=== PATIENT | female | born 2000 | race Caucasian/White ===

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

== ENCOUNTER 2019-02-01 16:32 | Emergency (ER) | payer SELFPAY ==
[~2019-02-01] VITALS: Ht 165.1 cm; Wt 52.2 kg
[2019-02-01] MEDS ORDERED: NS IV 1000 ML 1,000 ML IV ONE (16:48)
[2019-02-01] MEDS ORDERED: fentaNYL INJECTION 100 MCG/2 ML AMP IVP STA (16:48)
[2019-02-01] MEDS ORDERED: ONDANSETRON 4 MG/2 ML (SDV) Z0FRAN IVP ONE (17:00)
[2019-02-01] MEDS ORDERED: FAMOTIDINE 20MG/2ML IV (PEPCID) IV STA (17:06)
--- NOTE | 2019-02-01 17:06 | ED Abdominal Pain ---
General Chief Complaint: Abdominal/GI Problems Stated Complaint: ABD PAIN Nursing Triage Note: PT STATES HAVING RIGHT SIDED ABD PAIN FOR 4 DAYS. PT DENIES INJURY TO SIDE. PT DENIES N/V/D/FEVER. PT DENIES BURNING OR PAIN WITH URINATION. PT DENIES VAGINAL DISCHARGE. PT STATES SHE SAW PCP YESTERDAY AND WAS TOLD IT WAS MUSCLE PAIN. PT STATES TAKING DEEP BREATHS AND LAYING DOWN OR GETTING UP WORSENS PAIN. Source of Information: Patient Exam Limitations: No Limitations History of Present Illness Date Seen by Provider: Feb 01, 2019 Time Seen by Provider: 16:47 Initial Comments Here with right-sided upper abdominal pain for the last 3-4 days. States it hurts worse when she is moving or breathing. Denies pain with eating and states feels different when she is drinking fluids. Denies nausea or vomiting. Denies fever or chills. Timing/Duration: 3-4 Days Severity/Quality: Moderate, Aching, Sharp Location: RUQ Radiation: No Radiation Activities at Onset: None Modifying Factors: Worsens With Movement Associated Symptoms: No Back Pain, No Chest Pain, No Fever/Chills, No Nausea/Vomiting, No Shortness of Air, No Weakness Allergies and Home Medications Allergies Coded Allergies: No Known Drug Allergies (Unverified Allergy, Mild, 11/01/09) Patient Home Medication List Home Medication List Reviewed: Yes Review of Systems Review of Systems Constitutional: see HPI; No chills, No fever EENTM: No Symptoms Reported Respiratory: No Symptoms Reported Cardiovascular: No Symptoms Reported Gastrointestinal: See HPI, Abdominal Pain; Denies Diarrhea, Denies Nausea Genitourinary: No Symptoms Reported Musculoskeletal: no symptoms reported Skin: no symptoms reported Psychiatric/Neurological: No Symptoms Reported All Other Systems Reviewed Negative Unless Noted: Yes Past Xfbqgaw-Sxvnsu-[place] Hx Past Med/Social Hx: Reviewed Nursing Past Med/Soc Hx Patient Social History Alcohol Use: Denies Use Recreational Drug Use: Yes (THC) Smoking Status: Never a Smoker Recent Foreign Travel: No Contact w/Someone Who Travel: No Recent Hopitalizations: No Seasonal Allergies Seasonal Allergies: No Past Medical History Surgeries: Yes (rhinoplasty) Respiratory: No Cardiac: No Neurological: No Genitourinary: No Gastrointestinal: No Musculoskeletal: No Endocrine: No HEENT: No Cancer: No Psychosocial: No Blood Disorders: No Family Medical History Reviewed Nursing Family Hx Physical Exam Vital Signs Vital Signs - First Documented 02/01/19 16:39 Temp 97.6 Pulse 99 Resp 18 B/P (MAP) 132/88 Pulse Ox 99 O2 Delivery Room Air Capillary Refill : Height/Weight/BMI Height: 5'5.00" Weight: 115lbs. oz. [id number]; 14.06 BMI Method:Stated General Appearance: WD/WN, mild distress HEENT: PERRL/EOMI, pharynx normal Neck: full range of motion, supple Respiratory: lungs clear, normal breath sounds Cardiovascular: no murmur, tachycardia Gastrointestinal: non tender, soft Extremities: non-tender, normal inspection Back: normal inspection, no CVA tenderness, no vertebral tenderness Neurologic/Psychiatric: alert, oriented x 3 Skin: normal color, warm/dry Progress/Results/Core Measures Results/Orders Lab Results Laboratory Tests Test 02/01/19 17:03 Range/Units White Blood Count 8.7 4.3-11.0 10^3/uL Red Blood Count 4.62 4.35-5.85 10^6/uL Hemoglobin 13.2 11.5-16.0 G/DL Hematocrit 41 35-52 % Mean Corpuscular Volume 89 80-99 FL Mean Corpuscular Hemoglobin 29 25-34 PG Mean Corpuscular Hemoglobin Concent 32 32-36 G/DL Red Cell Distribution Width 13.0 10.0-14.5 % Platelet Count 352 130-400 10^3/uL Mean Platelet Volume 9.6 7.4-10.4 FL Neutrophils (%) (Auto) 62 42-75 % Lymphocytes (%) (Auto) 26 12-44 % Monocytes (%) (Auto) 11 0-12 % Eosinophils (%) (Auto) 2 0-10 % Basophils (%) (Auto) 0 0-10 % Neutrophils # (Auto) 5.4 1.8-7.8 X 10^3 Lymphocytes # (Auto) 2.3 1.0-4.0 X 10^3 Monocytes # (Auto) 0.9 0.0-1.0 X 10^3 Eosinophils # (Auto) 0.2 0.0-0.3 10^3/uL Basophils # (Auto) 0.0 0.0-0.1 10^3/uL Sodium Level 139 135-145 MMOL/L Potassium Level 3.9 3.6-5.0 MMOL/L Chloride Level 102 98-107 MMOL/L Carbon Dioxide Level 25 21-32 MMOL/L Anion Gap 12 5-14 MMOL/L Blood Urea Nitrogen 10 7-18 MG/DL Creatinine 0.84 0.60-1.30 MG/DL Estimat Glomerular Filtration Rate > 60 BUN/Creatinine Ratio 12 Glucose Level 84 70-105 MG/DL Calcium Level 10.1 8.5-10.1 MG/DL Corrected Calcium 9.7 8.5-10.1 MG/DL Total Bilirubin 0.3 0.1-1.0 MG/DL Aspartate Amino Transf (AST/SGOT) 11 5-34 U/L Alanine Aminotransferase (ALT/SGPT) 11 0-55 U/L Alkaline Phosphatase 48 40-136 U/L C-Reactive Protein High Sensitivity 3.02 H 0.00-0.50 MG/DL Total Protein 8.3 H 6.4-8.2 GM/DL Albumin 4.5 3.2-4.5 GM/DL Lipase 34 8-78 U/L Serum Test, Qualitative NEGATIVE NEGATIVE My Orders Orders - ISIDRO BOSWELL MD Us Gallbladder [id number] (02/01/19 16:48) Cbc With Automated Diff (02/01/19 16:48) Comprehensive Metabolic Panel (02/01/19 16:48) Hs C Reactive Protein (02/01/19 16:48) Hcg,Qualitative Serum (02/01/19 16:48) Lipase (02/01/19 16:48) Ed Iv/Invasive Line Start (02/01/19 16:48) Ns Iv 1000 Ml (Sodium Chloride 0.9%) (02/01/19 16:48) Fentanyl Injection (Sublimaze Injection (02/01/19 16:48) Ondansetron Injection (Zofran Injectio (02/01/19 17:00) Famotidine Injection (Pepcid Injection) (02/01/19 17:06) Chest Pa/Lat (2 View) (02/01/19 17:19) Medications Given in ED Current Medications Medications Dose Ordered Sig/Maikel Route Start Time Stop Time Status Last Admin Dose Admin Ondansetron HCl 4 mg ONCE ONCE IVP 02/01/19 17:00 02/01/19 17:01 DC 02/01/19 17:17 4 MG Sodium Chloride 1,000 ml @ 0 mls/hr Q0M ONCE IV 02/01/19 16:48 02/01/19 16:49 DC 02/01/19 17:17 1,000 MLS/HR Vital Signs/I&O 02/01/19 16:39 Temp 97.6 Pulse 99 Resp 18 B/P (MAP) 132/88 Pulse Ox 99 O2 Delivery Room Air Progress Progress Note : Progress Note Seen and evaluated. IV, labs, ultrasound gallbladder, chest x-ray, normal saline 1 L bolus, Zofran 4 mg IV, fentanyl 50 g IV ordered. Monitor patient. 1740: Ultrasound negative. Pain resolved. Pending chest x-ray. 1751: Chest x-ray complete and shows no acute findings. Discharged home with return precautions. Patient verbalize understanding instructions and agreement with plan. Diagnostic Imaging Diagonstic Imaging: Ultrasound Plain Films/CT/US/NM/MRI: abdomen Comments NAME: REGINALD GARCIA [facility] REC#: [id number] PT STATUS: REG ER : 2000 PHYSICIAN: ISIDRO BOSWELL MD ADMIT DATE: 02/01/19/ER Draft Date of Exam:02/01/19 US GALLBLADDER [id number] PROCEDURE: US Gallbladder. TECHNIQUE: Multiple real-time grayscale images were obtained over the right upper quadrant in various projections. INDICATION: Abdominal pain. COMPARISON: None available. FINDINGS: Liver: Normal in size and echotexture. No focal lesion is seen. Gallbladder: Normal. No stones or gallbladder wall thickening. No pericholecystic fluid. Negative sonographic Marin's sign. Biliary Tree: No intrahepatic or extrahepatic bile duct dilation is identified. The proximal common duct measures 0.3 cm in diameter. Pancreas: The head is obscure by overlying bowel gas. No abnormality in the visualized portions of the distal body and tail. Right kidney: Normal parenchymal echotexture and thickness. No hydronephrosis, stone or mass. IMPRESSION: Right upper quadrant ultrasound is within normal limits. No sonographic evidence of an acute abdominal process. Dictated on workstation # [id number] Dict: 02/01/19 1721 Trans: 02/01/19 1724 [facility] [id number] Interpreted by: SILAS BOYD DO Electronically signed by: Diagonstic Imaging: Xray Plain Films/CT/US/NM/MRI: chest Comments No acute findings Reviewed: Reviewed by Me Departure Impression Primary Impression: Epigastric abdominal pain Disposition: 01 HOME, SELF-CARE Condition: Improved Departure-Patient Inst. Decision time for Depature: 17:49 Referrals: JAKE VELASQUEZ,LOCAL PHYSICIAN (PCP) Primary Care Physician [facility] Patient Instructions: Acid Reflux (Gastroesophageal Reflux Disease) in Adults, Acute Abdomen (Belly Pain), Adult (DC) Add. Discharge Instructions: All discharge instructions reviewed with patient and/or family. Voiced understanding. You may take omeprazole 20 mg daily for the next 2 weeks and may extend that up to 6 weeks as needed for stomach upset. You may also take Pepcid or the generic famotidine 20 mg daily for pain. You may take Tylenol/acetaminophen 1000 mg every 8 hours as needed for pain. Light diet for the next few days and then advance as tolerated. You should follow-up with a doctor of your choosing or listed for recheck and further evaluation within one week for recheck and fur ther evaluation as needed. Return for worse pain, fever, vomiting, weakness, breathing problems or other concerns as needed. Work/School Note: Work Release Form Date Seen in the Emergency Department: Feb 01, 2019 Return to Work: Feb 02, 2019 Restrictions: No Restrictions ISIDRO BOSWELL MD Feb 01, 2019 17:06
[2019-02-01 17:10] LABS: BASOPHILS % (AUTO) 0 % (0-10); EOSINOPHILS # (AUTO) 0.2 10^3/uL (0.0-0.3); EOSINOPHILS % (AUTO) 2 % (0-10); HEMATOCRIT 41 % (35-52); HEMOGLOBIN 13.2 G/DL (11.5-16.0); LYMPHOCYTES # (AUTO) 2.3 X 10^3 (1.0-4.0); LYMPHOCYTES % (AUTO) 26 % (12-44); MEAN CORPUSCULAR HEMOGLOBIN 29 PG (25-34); MEAN CORPUSCULAR HGB CONC 32 G/DL (32-36); MEAN CORPUSCULAR VOLUME 89 FL (80-99); MEAN PLATELET VOLUME 9.6 FL (7.4-10.4); MONOCYTES # (AUTO) 0.9 X 10^3 (0.0-1.0); MONOCYTES % (AUTO) 11 % (0-12); NEUTROPHILS # (AUTO) 5.4 X 10^3 (1.8-7.8); NEUTROPHILS % (AUTO) 62 % (42-75); PLATELET COUNT 352 10^3/uL (130-400); WHITE BLOOD COUNT 8.7 10^3/uL (4.3-11.0)
--- NOTE | 2019-02-01 17:24 | Diagnostic Imaging Report ---
PROCEDURE: US Gallbladder. TECHNIQUE: Multiple real-time grayscale images were obtained over the right upper quadrant in various projections. INDICATION: Abdominal pain. COMPARISON: None available. FINDINGS: Liver: Normal in size and echotexture. No focal lesion is seen. Gallbladder: Normal. No stones or gallbladder wall thickening. No pericholecystic fluid. Negative sonographic Marin's sign. Biliary Tree: No intrahepatic or extrahepatic bile duct dilation is identified. The proximal common duct measures 0.3 cm in diameter. Pancreas: The head is obscure by overlying bowel gas. No abnormality in the visualized portions of the distal body and tail. Right kidney: Normal parenchymal echotexture and thickness. No hydronephrosis, stone or mass. IMPRESSION: Right upper quadrant ultrasound is within normal limits. No sonographic evidence of an acute abdominal process. Dictated by: Dictated on workstation # [id number]
[2019-02-01 17:27] LABS: ALANINE AMINOTRANSFERASE 11 U/L (0-55); ALBUMIN 4.5 GM/DL (3.2-4.5); ALKALINE PHOSPHATASE 48 U/L (40-136); BILIRUBIN,TOTAL 0.3 MG/DL (0.1-1.0); BUN/CREATININE RATIO 12; CALCIUM 10.1 MG/DL (8.5-10.1); CARBON DIOXIDE 25 MMOL/L (21-32); CHLORIDE 102 MMOL/L (98-107); CREATININE SERUM 0.84 MG/DL (0.60-1.30); GFR ESTIMATED > 60; GLUCOSE 84 MG/DL (70-105); LIPASE 34 U/L (8-78); POTASSIUM 3.9 MMOL/L (3.6-5.0); SODIUM 139 MMOL/L (135-145); TOTAL PROTEIN 8.3 GM/DL (6.4-8.2)
--- NOTE | 2019-02-01 18:06 | Diagnostic Imaging Report ---
INDICATION: Pain FINDINGS: The lungs are clear. The heart and vessels normal. There is no effusion or pneumothorax. IMPRESSION: No acute appearing abnormality. Dictated by: Dictated on workstation # [id number]
== END 2019-02-01 18:19 | disposition home or self-care (01) ==
LOC: EDUNIT# 16:32 → ER 16:33
DX: R10.13 Epigastric pain (principal); F12.10 Cannabis abuse, uncomplicated
CPT/HCPCS: 36415; 71046; 76705; 80053; 83690; 84703; 85025; 86141; 96374; 96375